=== PATIENT | female | born 1975 | race African-American/Black ===

== ENCOUNTER 2018-04-24 18:28 | Emergency (ER) | payer MEDICAID ==
[~2018-04-24] VITALS: Ht 165.1 cm; Wt 68.0 kg
--- NOTE | 2018-04-24 18:51 | NUR ---
Patient discharged to home in stable conditon. Written and verbal after care instructions given. Patient verbalizes understanding of instructions.
--- NOTE | 2018-04-24 18:53 | NUR ---
PT DOES NOT WANTTO WAIT FOR UA. AWARE.
[2018-04-24 19:05] LABS: *BILIRUBIN,URIN NEGATIVE (NEGATIVE); *BLOOD, URINE Trace-lysed (NEGATIVE); *CLARITY,URINE CLEAR (CLEAR); *COLOR,URINE YELLOW (YELLOW); *KETONES,URINE NEGATIVE (NEGATIVE); *URINE HCG, QUAL NEGATIVE (NEGATIVE); *UROBILINOGEN,URINE 0.2 E.U./dl (NORMAL); LEUKOCYTE ESTERASE ,URINE NEGATIVE (NEGATIVE); NITRITE, URINE NEGATIVE (NEGATIVE); UGLUCOSE NEGATIVE (NEGATIVE)
[2018-04-24 19:08] LABS: SQUAMOUS EPITHELIAL CELL,UR FEW /HPF (NONE SEEN); WBC,URINE 0-3 /HPF (0-3)
== END 2018-04-24 18:55 | disposition home or self-care (01) ==
LOC: ER 18:28
DX: M54.5 Low back pain (principal); M25.511 Pain in right shoulder; F17.290 Nicotine dependence, other tobacco product, uncomplicated
CPT/HCPCS: 84703; A4663

== ENCOUNTER 2018-06-29 14:29 | Emergency (ER) | payer MEDICAID ==
[~2018-06-29] VITALS: Ht 165.1 cm; Wt 72.6 kg
[2018-06-29] MEDS ORDERED: KETOROLAC TROMETHAMINE 30 MG INJ IM ONE (15:15)
[2018-06-29] MEDS ORDERED: LIDOCAINE 5% PATCH TD ONE (15:15)
--- NOTE | 2018-06-29 15:27 | NUR ---
Patient discharged to home in stable conditon. Written and verbal after care instructions given. Patient verbalizes understanding of instructions.
== END 2018-06-29 15:40 | disposition home or self-care (01) ==
LOC: ER 14:29
DX: S13.4XXA Sprain of ligaments of cervical spine, initial encounter (principal); S33.5XXA Sprain of ligaments of lumbar spine, initial encounter; F17.200 Nicotine dependence, unspecified, uncomplicated; V49.9XXA Car occupant (driver) (passenger) injured in unspecified traffic accident, initial encounter; Y93.89 Activity, other specified; Y92.89 Other specified places as the place of occurrence of the external cause; Y99.8 Other external cause status
CPT/HCPCS: A4663